=== PATIENT | male | born 1965 | race Caucasian/White ===

== ENCOUNTER 2020-07-15 18:36 | Emergency (ER) | payer OTHER, MEDICAID ==
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
[2020-07-15 19:23] VITALS: O2SAT 97
[2020-07-15 19:28] LABS: BASOPHIL % 0.6 % (0.0-0.4); Basophil (Absolute #) 0.03 (0-0.4); Eosinophil % 4.1 % (0.00-5.0); Eosinophil (Absolute #) 0.21 (0-0.5); Hematocrit 41.6 % (42-50); Hemoglobin 13.5 gm/dl (12.5-18.0); INR 1.07 (0.8-3.0); Lymphocyte (Absolute #) 1.96 (1.0-4.6); Lymphocytes % 37.9 % (24.0-44.0); Mean Cell Volume 91.6 fl (78-100); Mean Corpuscular Hemoglobin 29.7 pg (26-32); Mean Corpuscular Hgb Concent. 32.5 g/dl (32-36); Monocyte (Absolute #) 0.97 (0.0-1.3); Monocytes % 18.8 % (0.0-12.0); Neutrophil % 38.6 % (36.0-66.0); PROTIME 12.1 SECONDS (8.83-12.87); Platelet Count 92 K/mm3 (150-450); Red Blood Count 4.54 M/mm3 (4.1-5.6); Red Cell Distribution Width 13.5 % (11.5-14.0); White Blood Count 5.2 K/mm3 (4.0-10.5)
[2020-07-15 19:32] LABS: ANION GAP 10.3 MEQ/L (5-15); BLOOD UREA NITROGEN 15 mg/dL (9-20); CHLORIDE 106 mmol/L (98-107); Calcium 9.1 mg/dL (8.4-10.2); Carbon Dioxide 28 mmol/L (22-30); Creatinine 1 1.07 mg/dL (0.66-1.25); Glucose 95 mg/dL (74-106); Potassium 3.9 mmol/L (3.5-5.1); SODIUM 140 mmol/L (137-145)
[2020-07-15 20:33] VITALS: BP 128/76
[2020-07-15 21:09] VITALS: PULSE 63
[2020-07-16 01:20] LABS: Slide Review 1 YES
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
== END 2020-07-15 21:17 | disposition home or self-care (01) ==
LOC: ED 18:36
DX: S30.811A Abrasion of abdominal wall, initial encounter (principal); V89.2XXA Person injured in unspecified motor-vehicle accident, traffic, initial encounter; Z79.01 Long term (current) use of anticoagulants; I10 Essential (primary) hypertension; Z98.61 Coronary angioplasty status
CPT/HCPCS: 36000; 36415; 74176; 80048; 84484; 85025; 85610; 93005; 93041; 99285